=== PATIENT | male | born 1995 | race Caucasian/White ===

== ENCOUNTER 2019-03-08 15:21 | Emergency (ER) | payer OTHER ==
[~2019-03-08] VITALS: Ht 182.9 cm; Wt 81.8 kg
--- NOTE | 2019-03-08 16:14 | REP ---
Clinical: Pain with recent trauma/fall . Technique: Internal rotation, external rotation, and Y view left shoulder . Findings: No acute fracture or dislocation. The acromioclavicular and glenohumeral joints are intact. No periarticular calcifications or degenerative changes are appreciated. Sub acromial space is normal. Surrounding soft tissues are unremarkable. Impression: Normal left shoulder radiographs. Electronically Signed by Elder Henao MD 03/08/2019 04:05 P
[2019-03-08] MEDS ORDERED: ACETAMINOPHEN 325 MG TAB PO ONE (18:30)
[2019-03-08] MEDS ORDERED: ONDANSETRON 4 MG ORAL DISINTEGRATING TAB (Q0162 PER 1MG) PO ONE (18:30)
[2019-03-08 20:09] VITALS: BP 122/69
--- NOTE | 2019-03-26 01:33 | REP ---
Clinical: Trauma/fall . Comparison: None . Findings: The ventricles, sulci, and cisterns are normal in position and appearance. Ding-white differentiation is maintained. No acute intracranial hemorrhage, mass/mass effect, pathology or trauma/injury. No evidence for acute infarction. No extra-axial fluid collection. Calvarium is intact. Paranasal sinuses and mastoid air cells are clear. Impression: 1. Well-circumscribed lytic lesion in the lateral aspect of the left frontal bone with smooth sclerotic margins likely represents benign Epidermoid. 2. No evidence for acute intracranial pathology or trauma/injury. Electronically Signed by Elder Henao MD 03/26/2019 01:24 A
--- NOTE | 2019-03-26 08:00 | ED PDOC ---
Post-Departure Follow-Up ft clara gonzalez faxed formal report of ct head for fu Doug Grijalva MD Mar 26, 2019 08:00
== END 2019-03-08 20:15 | disposition home or self-care (01) ==
LOC: M ED 15:21
DX: S06.0X0A Concussion without loss of consciousness, initial encounter (principal); L72.0 Epidermal cyst; S40.012A Contusion of left shoulder, initial encounter; S80.811A Abrasion, right lower leg, initial encounter; S80.812A Abrasion, left lower leg, initial encounter; V00.131A Fall from skateboard, initial encounter; Y92.410 Unspecified street and highway as the place of occurrence of the external cause
CPT/HCPCS: 70450; 73030; 99283; Q0162

== ENCOUNTER 2021-02-15 19:03 | Emergency (ER) | payer OTHER ==
[~2021-02-15] VITALS: Ht 182.9 cm; Wt 90.9 kg
--- NOTE | 2021-02-15 19:26 | REP ---
INDICATION: CHEST PAIN COMPARISON: None. TECHNIQUE: PA and lateral. FINDINGS: The mediastinum and cardiac silhouette are normal. The lung knott are clear and without acute consolidation, effusion, or pneumothorax. The skeletal structures are intact and normal. IMPRESSION: No acute cardiopulmonary process. <Electronically signed by Elder Henao > 02/15/21 [id number]
[2021-02-15 19:44] LABS: BASO # 0.1 10^3/uL (0.0-0.2); BASO % 0.7 % (0.0-1.0); EOS # 0.1 10^3/uL (0.0-0.5); EOS % 0.9 % (0.0-3.0); HEMATOCRIT 43.5 % (42.0-52.0); HEMOGLOBIN 15.1 g/dl (13.5-17.5); LYMPH # 2.8 10^3/uL (1.5-5.0); LYMPH % 39.5 % (24.0-44.0); MEAN CORPUSCULAR HEMOGLOBIN 29.4 pg (27.0-33.0); MEAN CORPUSCULAR HGB CONC 34.7 g/dl (32.0-36.5); MEAN CORPUSCULAR VOLUME 84.8 fl (80.0-96.0); MONO # 0.5 10^3/uL (0.0-0.8); MONO % 6.8 % (2.0-8.0); NEUTROPHILS # 3.7 10^3/uL (1.5-8.5); PLATELET COUNT, AUTOMATED 259 10^3/uL (150-450); RED BLOOD COUNT 5.13 10^6/uL (4.30-6.10)
[2021-02-15 20:10] LABS: ALBUMIN 4.3 GM/DL (3.2-5.2); ALT/SGPT 34 U/L (12-78); BILIRUBIN,DIRECT < 0.1 MG/DL (0.0-0.2); BILIRUBIN,TOTAL 0.4 MG/DL (0.2-1.0); BLOOD UREA NITROGEN 15 MG/DL (7-18); CALCIUM LEVEL 9.3 MG/DL (8.5-10.1); CARBON DIOXIDE LEVEL 27 MEQ/L (21-32); CHLORIDE LEVEL 103 MEQ/L (98-107); CK-MB VALUE MASS < 1.0 NG/ML (<3.6); CPK CREATINE PHOSPHOKINASE 146 U/L (39-308); CREATININE FOR GFR 0.98 MG/DL (0.70-1.30); GLOMERULAR FILTRATION RATE > 60.0 (>60); GLUCOSE, FASTING 102 MG/DL (70-100); MB/CK RELATIVE INDEX 0.68 (< OR =4); POTASSIUM SERUM 3.5 MEQ/L (3.5-5.1); SODIUM LEVEL 138 MEQ/L (136-145); TOTAL PROTEIN 7.5 GM/DL (6.4-8.2); TROPONIN I < 0.02 NG/ML (< 0.10)
--- NOTE | 2021-02-15 20:23 | ECGEPIP ---
[facility] - ED Test Date: 2021-02-15 Pat Name: ESSIE HILL Department: Room: - Gender: Male Insurance Manager: JULIENNE : 1995 Requested By: ANDREE CARBALLO Order Number: [id number] Reading MD: Neal Waterman Measurements Intervals [place] Rate: 95 P: 78 MI: 192 QRS: 87 QRSD: 88 T: -11 QT: 332 QTc: 417 Interpretive Statements Normal sinus rhythm T wave abnormality, consider inferior ischemia NO PRIORS FOR COMPARISON Electronically Signed on 02-15-2021 20:23:08 EDT by Neal Waterman
[2021-02-15 23:50] LABS: CK-MB VALUE MASS < 1.0 NG/ML (<3.6); CPK CREATINE PHOSPHOKINASE 134 U/L (39-308); MB/CK RELATIVE INDEX 0.75 (< OR =4); TROPONIN I < 0.02 NG/ML (< 0.10)
[2021-02-16 00:23] VITALS: BP 128/89
--- NOTE | 2021-02-16 09:28 | ECGEPIP ---
[facility] - ED Test Date: 2021-02-15 Pat Name: ESSIE HILL Department: Room: - Gender: Male Public Health Staff Nurse: arely : [id number] Requested By: ANDREE CARBALLO Order Number: [id number] Reading MD: Neal Waterman Measurements Intervals [place] Rate: 79 P: 74 AL: 202 QRS: 84 QRSD: 86 T: 34 QT: 358 QTc: 410 Interpretive Statements Normal sinus rhythm NSTTW ABNORMALITY(S) SIMILAR TO PRIOR ON SAME DATE Electronically Signed on 02-16-2021 9:27:53 EDT by Neal Waterman
== END 2021-02-16 00:24 | disposition home or self-care (01) ==
LOC: M ED 19:03
DX: R07.89 Other chest pain (principal); F17.210 Nicotine dependence, cigarettes, uncomplicated